=== PATIENT | male | born 1990 | race Caucasian/White ===

== ENCOUNTER → 2020-06-05 08:46 | Outpatient (CLI) | payer OTHER, MEDICAID, SELFPAY ==
[2020-06-05] MEDS: COVID-19 VACC #1, MRNA(MOD) 100 MCG/0.5 ML VIAL IM (08:53)
== END ==
PROVIDERS: Visit Provider Internal Medicine
DX: Z23 Encounter for immunization (principal)
CPT/HCPCS: 0011A; 91301

== ENCOUNTER → 2022-06-06 13:00 | Outpatient (CLI) | payer OTHER, MEDICAID, SELFPAY ==
[2022-06-06 14:01] LABS: Add Manual Diff / Slide Review NO; Basophils Absolute Auto 0 /uL (0-100); Basophils Percent Auto 0.5 % (0-2); Eosinophils Absolute Auto 200 /uL (0-450); Eosinophils Percent Auto 3.1 % (2-4); Hematocrit 43.6 % (41-53); Hemoglobin 14.8 g/dL (13.5-17.5); Lymphocytes Absolute Auto 1600 /uL (1100-4500); Lymphocytes Percent Auto 29.4 % (25-40); Mean Corpuscular Hemoglobin 31.6 PG (26-34); Mean Corpuscular Volume 92.9 fL (80-100); Monocytes Absolute Auto 500 /uL (0-900); Monocytes Percent Auto 9.4 % (3-14); Neutrophils Absolute Auto 3200 /uL (1500-7000); Neutrophils Percent Auto 57.6 % (50-75); Platelet Count 219 X10^3/uL (150-400); Red Cell Distribution Width 12.4 % (11.6-14.8); White Blood Cell Count 5.6 X10^3/uL (4.5-11.0)
[2022-06-07 14:57] LABS: Fecal Immunochemical Test Negative (Negative)
== END ==
PROVIDERS: PCP Family Medicine; Referring Provider Family Medicine; Visit Provider Family Medicine
DX: K92.1 Melena (principal); R15.2 Fecal urgency
CPT/HCPCS: 82274; 85025

== ENCOUNTER → 2022-09-23 09:05 | Outpatient (CLI) | payer OTHER, MEDICAID, SELFPAY ==
--- NOTE | 2022-09-23 09:07 | DI.RAD.S_ITS ---
PROCEDURE: XR KNEE LT 3V INDICATIONS: bilateral knee pain TECHNIQUE: 3 views of the knee were acquired. COMPARISON: None. FINDINGS: Bones: No acute fractures or dislocations. No suspicious bony lesions. Soft tissues: Small joint effusion. No suspicious soft tissue calcifications. IMPRESSION: Small joint effusion. No acute osseous abnormality. If the symptoms persist, consider cross sectional imaging such as MRI or CT for further assessment. Approved by: Maco Allison M.D. on 09/23/2022 at 11:49
--- NOTE | 2022-09-23 09:07 | DI.RAD.S_ITS ---
PROCEDURE: XR KNEE RT 3V INDICATIONS: bilateral knee pain TECHNIQUE: 3 views of the knee were acquired. COMPARISON: None. FINDINGS: Bones: No acute fractures or dislocations. No suspicious bony lesions. Soft tissues: Moderate joint effusion. No suspicious soft tissue calcifications. IMPRESSION: Moderate joint effusion. No acute osseous abnormality. If the symptoms persist, consider cross sectional imaging such as MRI or CT for further assessment. Approved by: Maco Allison M.D. on 09/23/2022 at 11:48
[2022-09-23 17:17] LABS: C-Reactive Protein Quant 2.6 mg/dL (<1.0)
[2022-09-23 17:18] LABS: Rheumatoid Factor < 8.6 IU/mL (<12.0)
[2022-09-23 18:01] LABS: Erythrocyte Sedimentation Rate 37 MM/HR (0-15)
[2022-09-26 17:08] LABS: ANA Screen, IFA Negative (.)
[2022-09-27 11:16] LABS: CCP Antibodies IgG/IgA 3 units (0-19)
== END ==
PROVIDERS: PCP Family Medicine; Referring Provider Family Medicine; Visit Provider Family Medicine
DX: M25.561 Pain in right knee (principal); M25.562 Pain in left knee; L30.9 Dermatitis, unspecified; M25.461 Effusion, right knee; M25.462 Effusion, left knee
CPT/HCPCS: 36415; 73562; 85651; 86038; 86140; 86200; 86430